=== PATIENT | male | born 1960 | race Caucasian/White ===

== ENCOUNTER 2017-07-07 07:29 | Emergency (ER) | payer OTHER ==
[2017-07-07] MEDS ORDERED: Ketorolac 60 MG/2 ML SDV IM ONE (08:16)
--- NOTE | 2017-07-07 08:22 | EDM.PDOC ---
ED HPI GENERAL MEDICAL PROBLEM - General Chief Complaint: General Stated Complaint: VOMITING PAIN IN LEFT NECK Time Seen by Provider: 07/07/17 08:17 Source of Information: Reports: Patient History Limitations: Reports: No Limitations - History of Present Illness INITIAL COMMENTS - FREE TEXT/NARRATIVE: c/o neck pain since 3 AM L sided, inc tender to touch and movement continues his regular meds PCP Donna Hall, last saw 1m ago lost his job yesterday, worked 11y at [employer], at [employer] before that , his employer was cutting back on expenses, has one child at home--a senior , here with his did not take pain meds at home did not sleep - Related Data Allergies Allergy/AdvReac Type Severity Reaction Status Date / Time No Known Allergies Allergy Verified 07/07/17 07:43 Home Meds: Home Meds Allopurinol 100 mg PO DAILY 06/22/14 [History] Lisinopril/Hydrochlorothiazide [Lisinopril-Hctz 10-12.5 mg Tab] 1 tab PO DAILY 06/22/14 [History] Simvastatin 40 mg PO DAILY 06/22/14 [History] Melatonin/Pyridoxine HCl (B6) [Melatonin 3 mg Tablet] 1 each PO DAILY PRN #30 tablet 07/07/17 [Rx] Past Medical History Cardiovascular History: Reports: Hypertension Social & Family History - Family History Family Medical History: Unobtainable - Tobacco Use Smoking Status *Q: Never Smoker - Alcohol Use Days Per Week of Alcohol Use: 4 Number of Drinks Per Day: 6 Total Drinks Per Week: 24 - Recreational Drug Use Recreational Drug Use: No Drug Use in Last 12 Months: No ED ROS GENERAL - Review of Systems Review Of Systems: See Below Constitutional: Reports: No Symptoms HEENT: Reports: No Symptoms Respiratory: Reports: No Symptoms Cardiovascular: Reports: No Symptoms Endocrine: Reports: No Symptoms GI/Abdominal: Reports: No Symptoms : Reports: No Symptoms Musculoskeletal: Reports: Neck Pain Skin: Reports: No Symptoms Neurological: Reports: Paresthesia, Other (insomnia) Psychiatric: Reports: No Symptoms Hematologic/Lymphatic: Reports: No Symptoms Immunologic: Reports: No Symptoms ED EXAM, GENERAL - Physical Exam Exam: See Below Exam Limited By: No Limitations General Appearance: Alert, WD/WN, No Apparent Distress Nose: Normal Inspection, Normal Mucosa, No Blood Throat/Mouth: Normal Inspection, Normal Lips, Normal Teeth, Normal Gums, Normal Oropharynx, Normal Voice, No Airway Compromise Head: Atraumatic, Normocephalic Neck: Normal Inspection, Supple, Other (1+ tender at L SCM, some firmness, good spontaneous ROM, nl alignment) Respiratory/Chest: No Respiratory Distress, Lungs Clear, Normal Breath Sounds Cardiovascular: Regular Rate, Rhythm, No Edema, No Gallop, No Murmur, No Rub Neurological: Alert, Oriented, CN II-XII Intact, Normal Cognition, No Motor/ Sensory Deficits Psychiatric: Anxious Skin Exam: Warm, Dry, Intact, Normal Color, No Rash Lymphatic: No Adenopathy Course - Vital Signs Last Recorded V/S: Last Vital Signs Temp 36.7 C 07/07/17 07:30 Pulse 85 07/07/17 07:30 Resp 17 07/07/17 07:30 BP 143/74 H 07/07/17 07:30 Pulse Ox 95 07/07/17 07:30 - Orders/Labs/Meds Orders: Active Orders 24 hr Category Date Time Status Ketorolac [Toradol] Med 07/07/17 08:16 Once 60 mg IM ONETIME ONE Departure - Departure Time of Disposition: 08:21 Disposition: Home, Self-Care 01 Condition: Good Clinical Impression: Muscle cramp, Insomnia, Stress - Discharge Information Prescriptions: Melatonin/Pyridoxine HCl (B6) [Melatonin 3 mg Tablet] 1 each PO DAILY PRN #30 tablet PRN Reason: Insomnia Instructions: Muscle Cramps and Spasms Referrals: Donna Hall ONCOLOGY NURSE NAVIGATOR [Primary Care Provider] - Additional Instructions: For pain and inflammation and to break the pain cycle, take ibuprofen 200 mg 3 tabs at noon, supper and bedtime. For pain and inflammation and to break the pain cycle, take acetaminophen 500 mg 2 tabs 4 times today. Use heat for 10 minutes every 2-3 hours as needed. For sleep, take melatonin 3 mg 1 tab and/or Tylenol PM 2 tabs at bedtime. See your doctor in the next 2 days. Read the book "What Color is Your [place]?" which has many suggestions on the process of finding a new job and has been a classic in the field for decades. - My Orders Last 24 Hours: My Active Orders 07/07/17 08:16 Ketorolac [Toradol] 60 mg IM ONETIME ONE - Assessment/Plan Last 24 Hours: My Active Orders 07/07/17 08:16 Ketorolac [Toradol] 60 mg IM ONETIME ONE
[2017-07-07 08:42] VITALS: BP 127/79
== END 2017-07-07 08:43 | disposition home or self-care (01) ==
LOC: FB.ED 07:29
DX: R25.2 Cramp and spasm (principal); G47.00 Insomnia, unspecified; F43.9 Reaction to severe stress, unspecified; I10 Essential (primary) hypertension; Z79.899 Other long term (current) drug therapy
CPT/HCPCS: 96372; 99283; J1885